=== PATIENT | female | born 1975 | race Caucasian/White ===

== ENCOUNTER 2025-10-20 09:10 | Emergency (ER) | payer BC, SELFPAY ==
[2025-10-20 09:19] VITALS: BP 143/75; PULSE 136; RESP 20; TEMP 37.6; O2SAT 98
--- NOTE | 2025-10-20 09:40 | ED_ITS ---
HPI - URI/Sore Throat General Chief Complaint: Dental/Oral Stated Complaint: Skin Pain/Fever/Chills/Light Headed Time Seen by Provider: 10/20/25 09:41 Source: patient, RN notes reviewed and old records reviewed Mode of arrival: ambulatory Limitations: no limitations History of Present Illness HPI Narrative: 50 year old female who presents to [facility] with complaints of fevers, chills, body aches, congestion starting last night. Patient reports that her right upper molar also started throbbing last night and is unsure if her symptoms are related to her tooth. Patient reports no sore throat, no ear pain, does reports some body aches and nasal drainage and feels some lightheadedness at times. Patient denies any nausea or vomiting or diarrhea or acute cough. MD elicited complaint: fever, rhinorrhea and other (body aches, feels lightheaded) Onset (ago): day(s) (last evening) Pain scale (0-10): 6 Able to tolerate fluids by mouth: Yes Treatments prior to arrival: other (BC powder and Benadryl) Related Data Allergies Allergy/AdvReac Type Severity Reaction Status Date / Time No Known Allergies Allergy Verified 10/20/25 09:59 Review of Systems Review of Systems: CONSTITUTIONAL: Reports malaise, chills, sweats, or fever. EYES: Denies visual changes, redness, or discharge. ENT: Reports rhinorrhea, congestion, sinus pain,no otalgia and no sore throat.dental pain right upper molar #3 tooth which filling fell out 2 weeks ago. CARDIOVASCULAR: Denies chest pain, palpitations, or edema. RESPIRATORY: Reports no cough.? Denies dyspnea. GASTROINTESTINAL: Denies abdominal pain, nausea, vomiting, diarrhea SKIN: Denies rash or itching. MUSCULOSKELETAL:reports myalgia. NEUROLOGIC: Denies headache. All systems reviewed & are unremarkable except as noted in HPI and below PMFSH Past Medical History Medical History (Updated 10/21/25 @ 09:36 by Nery Garrido APRN) History of dental problems Surgical History Surgical History (Updated 10/20/25 @ 10:00 by Nery Garrido APRN) H/O right breast biopsy Previous section Social History Social History (Updated 10/20/25 @ 09:59 by Nery Garrido APRN) Smoking status: Current every day smoker Tobacco type: e-cigarettes/vaping Alcohol intake: never Substance use type: does not use Living arrangements: with family Gender identity (if verbalized by the patient): Female Comments At time of signature, agree with nursing past medical, surgical, social and family history. There is no relevant family history pertinent to the presenting complaint Exam Narrative: GENERAL: Well-appearing, well-nourished, and in no acute distress. HEAD: Normocephalic EYES: PERRLA, conjunctivae clear ENT: Nares clear, turbinates edematous and erythematous, clear discharge. Mucous membranes moist. TM pearly enamorado with dull light reflex bilaterally; no tragal tenderness. Oropharynx erythematous without lesions. Tonsils not enlarged and without exudate, no drooling, no hoarseness, no trismus, uvula midline. Dental pain to the right upper molar #3 with loss of filling about 2 weeks ago with some redness and swelling of gums around tooth,, some post nasal drainage noted no signs of facial swelling or any Dominic angina. NECK: Supple. No lymphadenopathy CHEST: Clear to auscultation, breath sounds equal. No wheezing, rhonchi, rales, or stridor. No respiratory distress, speaks in full sentences.SAO2 98% on room air HEART: Regular rate and rhythm. No murmur heard. SKIN: Warm, dry, no rash. NEURO: Alert and oriented x3. PSYCH: Normal mood and affect Course Course Level of Care: Express Care Visit Vital Signs Vital signs: Vital Signs Temperature 37.6 C H 10/20/25 09:19 Pulse Rate 136 H 10/20/25 09:19 Respiratory Rate 20 10/20/25 09:19 Blood Pressure 143/75 H 10/20/25 09:19 Pulse Oximetry 98 10/20/25 09:19 Oxygen Delivery Room Air 10/20/25 09:19 Temperature 37.6 C H 10/20/25 09:19 Pulse Rate 136 H 10/20/25 09:19 Respiratory Rate 20 10/20/25 09:19 Blood Pressure 143/75 H 10/20/25 09:19 Pulse Oximetry 98 10/20/25 09:19 Oxygen Delivery Room Air 10/20/25 09:19 reviewed MDM MDM Narrative Medical decision making narrative: 50 year old female presents with complaints of congestion, fevers, body aches with dental pain to #3 tooth since filling fell out about 2 weeks ago. Testing negative for FLu and COVID, redness and swelling around gum noted along #3 tooth or gum with filling gone. Patient is appropriate for out patient follow up. Anticipatory guidance and reasons to seek care in ED reviewed with understanding voiced. Antibiotic ordered and OTC pain relievers for her discomfort and fever recommended.. Differential Diagnosis Differential Diagnosis: Differential diagnostic considerations for upper respiratory infection include upper respiratory infection, croup, otitis media, sinusitis, viral infection, bronchitis, influenza, pharyngitis, strep, uvulitis.? Differential diagnostic considerations for dental issues include gingival abscess, dental caries, toothache, dental abscess, fracture of tooth, aphthous ulcer, TMJ. Lab Data MDM Lab Attestation statement: I personally reviewed the patient's lab results. Lab results narrative: Influenza A&B negative, COVID angina negative Labs: Lab Results 10/20/25 Range/Units 09:50 POC Influenza A Ag Negative (Negative) POC Influenza B Ag Negative (Negative) POC SARS CoV-2 Ag Negative (Negative) reviewed Critical Care Time Critical Care Time Critical Care Time: No Discharge Plan Discharge Clinical Impression: Dental abscess, Dental caries Patient Disposition: Home Condition: Stable Instructions: Antibiotic Form, Dental Abscess (ED) Additional Instructions: Avoid temperature extremes May apply heat or ice to the face Gentle brushing and flossing Antibiotic as directed Tylenol for lesser pain Use ibuprofen regularly Use the medication as provided for severe pain--caution each tablet contains 325 mg of Tylenol--the maximum dose of Tylenol is 4000 mg in 24 hours. This medication may cause constipation consider starting a laxative at this time Follow-up with the dentist as soon as possible--see the list provided negative COVID and flu If your symptoms persist, change or worsen significantly before you can contact your personal physician then please, without delay, go to the emergency department for further evaluation. Follow-up with PCP in 7-10 days or sooner if needed Follow up with PCP soon in regards to your blood pressure which is elevated above threshold for referral. Blood pressure above 120/80 may indicate pre- hypertension. 143/75 Patient Language: Portuguese Prescriptions: New penicillin V potassium 500 mg tablet 500 mg PO Q12H 10 Days Qty: 20 0RF Follow-up/Referrals: PHYSICIAN,SPECIALTY TRIMMER [Primary Care Provider, Internal Medicine] Stand Alone Forms: Work/School Release IP Time of Disposition: 10:06 Quality [place] Coma Scale Eyes: Open Verbal: Oriented and Alert Motor: Follows Commands Marlene Coma Total Score: 15
[2025-10-20 09:52] LABS: EDCOVIDSCREEN Negative (Negative); EDINFLUASCREEN Negative (Negative); EDINFLUBSCREEN Negative (Negative)
== END 2025-10-20 10:08 | disposition home or self-care (01) ==
PROVIDERS: Emergency Provider Registered Nurse
DX: K04.7 Periapical abscess without sinus (principal); K02.9 Dental caries, unspecified; Z20.822 Contact with and (suspected) exposure to COVID-19; F17.290 Nicotine dependence, other tobacco product, uncomplicated
CPT/HCPCS: 87426; 87804; 99213; G0463